=== PATIENT | female | born 1995 | race Caucasian/White ===

== ENCOUNTER 2016-10-15 20:59 | Emergency (ER) | payer OTHER ==
[2016-10-15 21:06] VITALS: BP 129/77
[2016-10-15] MEDS ORDERED: traMADol TAB* 50 MG PO ONE (22:10)
[2016-10-15] MEDS ORDERED: Ibuprofen TAB* 400 MG PO ONE (22:10)
[2016-10-15] MEDS ORDERED: Sulfamethox/Trimethoprim DS 800/160* TAB PO ONE (22:10)
[2016-10-15] MEDS ORDERED: Cephalexin CAP* 500 MG PO ONE (22:10)
--- NOTE | 2016-10-17 21:30 | ED ---
Sean Thomas Billy, scribed for Lauro Wing MD on 10/15/16 at 2151 . Skin Complaint - HPI Summary HPI Summary: Patient is a 20 year-old female coming to [facility] for evaluation of a cyst on her coccyx. It has been there for 2 days. She denies any fevers, chills, or drainage. However, it is painful to touch and erythematous. It has been gradually worsening since onset. - History of Current Complaint Chief Complaint: EDGeneral Time Seen by Provider: 10/15/16 21:21 Stated Complaint: TAIL BONE PAIN Hx Obtained From: Patient Onset/Duration: Started Days Ago Timing: Constant Onset Severity: Moderate Current Severity: Moderate Pain Intensity: 6 Pain Scale Used: 0-10 Numeric Skin Location: Other: - coccyx Character: Redness, Painful Aggravating Symptom(s): Touch Alleviating Symptom(s): Nothing Associated Signs & Symptoms: Negative - Allergy/Home Medications Allergies/Adverse Reactions: Allergies Allergy/AdvReac Type Severity Reaction Status Date / Time No Known Allergies Allergy Verified 10/15/16 21:06 PMH/Surg Hx/FS Hx/Imm Hx Endocrine/Hematology History: Denies: Hx Diabetes Cardiovascular History: Denies: Hx Myocardial Infarction Infectious Disease History: No Infectious Disease History: Denies: Traveled Outside the [place] in Last 30 Days - Family History Known Family History: Positive: Cardiac Disease Family History: Breast cancer (mother) - Social History Alcohol Use: None Substance Use Type: Reports: None Smoking Status (MU): Never Smoked Tobacco Review of Systems Negative: Fever, Chills Negative: Erythema Negative: Sore Throat Negative: Chest Pain Negative: Shortness Of Breath, Cough Negative: Abdominal Pain, Vomiting, Nausea Negative: Myalgia, Edema Positive: Other - cyst All Other Systems Reviewed And Are Negative: Yes Physical Exam - Summary Physical Exam Summary: Constitutional: Well-developed, Well-nourished, Alert. (-) Distressed Skin: Warm, Dry. There is a pilonidal cyst which appears fluctuant, nondraining , with minimal surrounding erythema. HENT: Normocephalic; Atraumatic Eyes: Conjunctiva normal Neck: Musculoskeletal ROM normal neck. (-) JVD, (-) Stridor, (-) Tracheal deviation Cardio: Rhythm regular, rate normal, Heart sounds normal; Intact distal pulses; The pedal pulses are 2+ and symmetric. Radial pulses are 2+ and symmetric. (-) Murmur Pulmonary/Chest wall: Effort normal. (-) Respiratory distress, (-) Wheezes, (-) Rales Abd: Soft, (-) Tenderness, (-) Distension, (-) Guarding, (-) Rebound Musculoskeletal: (-) Edema Lymph: (-) Cervical adenopathy Neuro: Alert, Oriented x3 Psych: Mood and affect Normal Triage Information Reviewed: Yes Vital Signs On Initial Exam: Initial Vitals Temp Pulse Resp BP Pulse Ox 97.7 F 100 17 129/77 100 10/15/16 21:04 10/15/16 21:04 10/15/16 21:04 10/15/16 21:04 10/15/16 21:04 Vital Signs Reviewed: Yes Diagnostics - Vital Signs Vital Signs Temp Pulse Resp BP Pulse Ox 10/15/16 21:07 97.7 F 101 17 129/77 100 10/15/16 21:04 97.7 F 100 17 129/77 100 - Laboratory Lab Statement: Any lab studies that have been ordered have been reviewed, and results considered in the medical decision making process. Course/Dx - Course Assessment/Plan: 20 y/o female to the ED for evaluation of a cyst on her coccyx. Physical exam reveals a pilonidal cyst. She will be discharged home to follow up with [facility] as well as Dr. Thakkar (surgery). She will be prescribed Toradol, ibuprofen, Keflex, and Bactrim. - Diagnoses Provider Diagnoses: Pilonidal cyst Discharge - Discharge Plan Condition: Stable Disposition: HOME Prescriptions: Cephalexin CAP* [Keflex CAP*] 500 mg PO QID #40 cap Ibuprofen TAB* [Motrin TAB* 600 MG] 600 mg PO Q6H PRN #40 tab PRN Reason: Pain Scale 6-10 Sulfamethox/Trimethoprim DS* [Bactrim DS 800/160 TAB*] 1 tab PO BID #20 tab traMADol TAB* [Ultram*] 25 mg PO Q6HR PRN #12 tab MDD 4 PRN Reason: Pain Scale 6-10 Patient Education Materials: Pilonidal Cyst (GEN) Referrals: [facility] [Outside] [facility] @ [Outside] Sanchez Thakkar MD [Medical Doctor] - 2 Days Additional Instructions: APPLY HEATING PADS NEEDED. TAKE PAIN MEDICATION AND ANTIBIOTICS DIRECTED. FOLLOW UP WITH DR. SANCHEZ THAKKAR (SURGERY). The documentation as recorded by the Sean weathers Billy accurately reflects the service I personally performed and the decisions made by me, Lauro Wing MD.
== END 2016-10-15 22:29 | disposition home or self-care (01) ==
LOC: ED 20:59
DX: L05.91 Pilonidal cyst without abscess (principal)
CPT/HCPCS: 99282; A9270-GY